=== PATIENT | female | born 1985 | race Caucasian/White ===

== ENCOUNTER 2022-07-22 20:29 | Inpatient (IN) ==
[2022-07-23] MEDS ORDERED: Dibucaine 1% OINT 28.35 GM TUBE PR PRN (01:34)
[2022-07-23] MEDS ORDERED: Glycerin ADULT 2.4 gm SUPP PR PRN (01:34)
[2022-07-23] MEDS ORDERED: Oxytocin 10 UNITS/ML 1 ML VIAL IM ONE (01:34)
[2022-07-23] MEDS ORDERED: Witch Hazel PAD JAR TOPICAL PRN (01:34)
[2022-07-23] MEDS ORDERED: Buffered Lidocaine 1% SYRIN 1 ml INTRADERM ONE (01:38)
[2022-07-23] MEDS ORDERED: Lactated Ringers 1000 ml BAG 1,000 ML IV SCH (02:00)
[2022-07-23] MEDS ORDERED: Benzocaine/Menthol LOZ MT PRN (02:42)
[2022-07-23 03:49] LABS: Urine Benzodiazepine Screen None Detected (None Detect); Urine Cannabinoids Screen None Detected (None Detect); Urine Opiates Screen None Detected (None Detect)
[2022-07-24 07:18] LABS: ABS Eosinophils 0.1 10^3/ul (0-0.6); ABS Monocytes 0.6 10^3/ul (0-0.8); ABS Neutrophils 6.2 10^3/ul (1.5-7.7); Eosinophil % 1.1 %; Hematocrit 24 % (35-47); Hemoglobin 8.2 g/dL (12.0-16.0); Mean Corpuscular HGB Conc 34 g/dL (31-36); Mean Corpuscular Hemoglobin 29 pg (27-31); Mean Corpuscular Volume 85 fL (80-97); Mean Platelet Volume 7.4 fL (7.4-10.4); Platelet Count 168 10^3/uL (150-450); Red Blood Count 2.86 10^6 /uL (3.70-4.87); Red Cell Distribution Width 14 % (10-15); White Blood Count 8.9 10^3/uL (3.5-10.8)
[2022-07-24 07:49] VITALS: BP 124/67
== END 2022-07-24 14:38 | disposition home or self-care (01) | DRG 542 ==
LOC: MCHOBOUT 20:29 → MCHOB 22:09
PROVIDERS: ADMIT Midwife; ATTEND Midwife